=== PATIENT | male | born 1960 | race Two or more races ===

== ENCOUNTER 2016-06-28 11:27 | Emergency (ER) | payer MEDICAID, OTHER ==
[~2016-06-28] VITALS: Ht 172.7 cm; Wt 117.9 kg
[2016-06-28 11:35] VITALS: BP 121/66
[2016-06-28] MEDS ORDERED: Morphine Sulfate 2mg/ml Inj IVP ONE (11:45)
[2016-06-28 12:29] LABS: ALANINE AMINOTRANSFERASE 35 U/L (3-41); ALBUMIN/GLOBULIN RATIO 0.6 (1.0-2.7); ANION GAP 17 (5-15); ASPARTATE AMINO TRANSFERASE 26 U/L (5-40); CALCIUM 9.4 mg/dL (8.6-10.2); CARBON DIOXIDE 23 mEQ/L (20-30); CHLORIDE 90 mEQ/L (98-107); CREATININE 0.8 mg/dL (0.7-1.2); GLOMERULAR FILTRATION RATE > 60 mL/min (>60); HEMOLYSIS 47; POTASSIUM 4.4 mEQ/L (3.4-4.9); SODIUM 130 mEQ/L (135-145); TOTAL PROTEIN 8.3 g/dL (6.6-8.7); TROPONIN I < 0.30 ng/mL (<=0.30)
[2016-06-28 12:30] VITALS: BP 123/84
[2016-06-28 12:41] LABS: BASOPHILS % (AUTO) 0.9 % (0.0-2.0); EOSINOPHILS % (AUTO) 1.9 % (0.0-3.0); MEAN CORPUSCULAR HEMOGLOBIN 30.6 PG (27.0-31.0); MEAN CORPUSCULAR HGB CONC 33.3 G/DL (32.0-36.0); MEAN CORPUSCULAR VOLUME 92 FL (80-99); MEAN PLATELET VOLUME 6.5 FL (6.5-10.1); MONOCYTES % (AUTO) 5.9 % (1.0-10.0); NEUTROPHILS % (AUTO) 68.3 % (45.0-75.0); PLATELET COUNT 716 K/UL (150-450); RED BLOOD COUNT 4.13 M/UL (4.70-6.10); RED CELL DISTRIBUTION WIDTH 11.4 % (11.6-14.8); THYROID STIMULATING HORMONE 0.651 uIU/mL (0.300-4.500); WHITE BLOOD COUNT 13.5 K/UL (4.8-10.8)
[2016-06-28 12:43] LABS: APPEARANCE,URINE CLEAR; KETONES,URINE NEGATIVE (NEGATIVE); LEUKOCYTE ESTERASE ,URINE NEGATIVE (NEGATIVE); NITRITE,URINE NEGATIVE (NEGATIVE); PH,URINE 7 (4.5-8.0); PROTEIN,URINE NEGATIVE (NEGATIVE); UROBILINOGEN,URINE NORMAL MG/DL (0.0-1.0)
[2016-06-28 12:55] LABS: INR 1.1 (0.9-1.1); PROTHROMBIN TIME 11.4 SEC (9.30-11.50)
[2016-06-28] MEDS ORDERED: Lidocaine 1% 10mg/ml/EPI 0.01mg/ml 50ml INJ ONE (13:30)
[2016-06-28 14:15] VITALS: BP 128/76
--- NOTE | 2016-06-28 14:33 | Emergency Room Report ---
History of Present Illness General Chief Complaint: Pain Source: Patient Present Illness HPI Patient presents complaining about left knee pain. Has been going on for almost a week. [place] Also there was a spider bite below the knee which makes him think that he might have an infection. Chills 2 days ago. Pain is 8/10, constant and worse with bending and standing. He has not taken any medicine. There is swelling below the knee. No calf tenderness. No chest pain, SOB, hemoptysis, dysuria. Allergies: Coded Allergies: No Known Allergies (Unverified , 06/28/16) Patient History Past Medical History: see triage record Social History: Reports: drug use - thc, smoking Social History Narrative unemployed - was doing insurance Reviewed Nursing Documentation: PMH: Agreed, PSxH: Agreed Nursing Documentation-PMH Past Medical History: No Stated History Review of Systems All Other Systems: negative except mentioned in HPI Physical Exam Vital Signs Date Time Temp Pulse Resp B/P Pulse Ox O2 Delivery O2 Flow Rate FiO2 06/28/16 11:32 97.7 124 22 169/91 99 Room Air Sp02 EP Interpretation: reviewed, normal General Appearance: well appearing, no apparent distress, GCS 15 Head: normocephalic Eyes: bilateral eye PERRL, bilateral eye normal inspection ENT: moist mucus membranes Neck: supple Respiratory: lungs clear, normal breath sounds Cardiovascular #1: regular rate, rhythm, edema - 1+ below knee Cardiovascular #2: 2+ radial (R), 2+ dorsalis pedis (R), 2+ dorsalis pedis (L) Gastrointestinal: normal inspection, normal bowel sounds, non tender, no mass, non-distended Musculoskeletal: no calf tenderness, decreased range of motion - R knee, ligs intact, inflammation, swelling, other - L knee is warm, ligaments stable, some effusion Neurologic: alert, oriented x3, grossly normal Skin: normal inspection, warm/dry, other - no erythema of knee Procedures Additional Procedure Procedure Narrative Arthrocentesis. Verbal consent. Prep betadiene draped. 1% lido epi. 0.5 ml bloody fluid removed. Medial approach with 18 ga needle. Culture sent. Tolerated well. Medical Decision Making Diagnostic Impression: Primary Impression: Septic joint of left knee joint Qualified Codes: M00.9 - Pyogenic arthritis, unspecified ER Course Patient presents with left knee pain. Initially he was reporting trauma. In after a noted that he was warm he states that he had a bug bite there and is concerned about possible infection. Differential includes gout, osteoarthritis , meniscal tear, septic joint amongst others. In addition to that because of the swelling there is a concern about possible DVT. Clinically exam is against DVT. D-dimer is ordered. Patient with warm knee and + D dimer. Need to exclude DVT. Uric acid excludes gout. US negative. Tap knee - only culture obtained. Antibiotics begun. Pain improved. Discussed with Dr. Montesinos. Transfer [facility]. Laboratory Tests Test 06/28/16 11:30 06/28/16 11:39 06/28/16 11:51 Uric Acid 4.8 mg/dL (3.0-7.5) Prothrombin Time 11.4 SEC (9.30-11.50) Prothrombin Time INR 1.1 (0.9-1.1) PTT 32 SEC (23-33) White Blood Count 13.5 K/UL (4.8-10.8) H Red Blood Count 4.13 M/UL (4.70-6.10) L Hemoglobin 12.7 G/DL (14.2-18.0) L Hematocrit 38.0 % (42.0-52.0) L Mean Corpuscular Volume 92 FL (80-99) Mean Corpuscular Hemoglobin 30.6 PG (27.0-31.0) Mean Corpuscular Hemoglobin Concent 33.3 G/DL (32.0-36.0) Red Cell Distribution Width 11.4 % (11.6-14.8) L Platelet Count 716 K/UL (150-450) H Mean Platelet Volume 6.5 FL (6.5-10.1) Neutrophils (%) (Auto) 68.3 % (45.0-75.0) Lymphocytes (%) (Auto) 23.0 % (20.0-45.0) Monocytes (%) (Auto) 5.9 % (1.0-10.0) Eosinophils (%) (Auto) 1.9 % (0.0-3.0) Basophils (%) (Auto) 0.9 % (0.0-2.0) D-Dimer 3392 ng/mL (<500) H Urine Color Pale yellow Urine Appearance Clear Urine pH 7 (4.5-8.0) Urine Specific [place] 1.010 (1.005-1.035) Urine Protein Negative (NEGATIVE) Urine Glucose (UA) Negative (NEGATIVE) Urine Ketones Negative (NEGATIVE) Urine Occult Blood Negative (NEGATIVE) Urine Nitrite Negative (NEGATIVE) Urine Bilirubin Negative (NEGATIVE) Urine Urobilinogen Normal MG/DL (0.0-1.0) Urine Leukocyte Esterase Negative (NEGATIVE) Sodium Level 130 mEQ/L (135-145) L Potassium Level 4.4 mEQ/L (3.4-4.9) Chloride Level 90 mEQ/L (98-107) L Carbon Dioxide Level 23 mEQ/L (20-30) Anion Gap 17 (5-15) H Blood Urea Nitrogen 11 mg/dL (7-23) Creatinine 0.8 mg/dL (0.7-1.2) Estimate Glomerular Filtration Rate > 60 mL/min (>60) Glucose Level 128 mg/dL (74-106) H Calcium Level 9.4 mg/dL (8.6-10.2) Total Bilirubin 0.4 mg/dL (0.0-1.2) Aspartate Amino Transferase (AST) 26 U/L (5-40) Alanine Aminotransferase (ALT) 35 U/L (3-41) Alkaline Phosphatase 80 U/L (40-129) Total Creatine Kinase 193 U/L (38-174) H Troponin I < 0.30 ng/mL (<=0.30) Pro-B-Type Natriuretic Peptide 32 pg/mL (0-125) Total Protein 8.3 g/dL (6.6-8.7) Albumin 3.3 g/dL (3.5-5.2) L Globulin 5.0 g/dL Albumin/Globulin Ratio 0.6 (1.0-2.7) L Thyroid Stimulating Hormone (TSH) 0.651 uIU/mL (0.300-4.500) Urine Opiates Screen Negative (NEGATIVE) Urine Barbiturates Screen Negative (NEGATIVE) Phencyclidine (PCP) Screen Negative (NEGATIVE) Urine Amphetamines Screen Negative (NEGATIVE) Urine Benzodiazepines Screen Negative (NEGATIVE) Urine Cocaine Screen Negative (NEGATIVE) Urine Marijuana (THC) Screen Positive (NEGATIVE) H EKG Diagnostic Results Rate: tachycardiac ST Segments: no acute changes Rhythm Strip Diag. Results EP Interpretation: yes Rhythm: no PVC's, no ectopy, other - ST Chest X-Ray Diagnostic Results EP Interpretation: Yes Findings: no consolidation, no effusion, no pneumothorax, no acute cardiopulmonary disease Number of Views: 1 Other X-Ray Diagnostic Results Other X-Ray Diagnostic Results : X-Ray Ordered: L knee EP Interpretation: Yes Findings: no fractures, no dislocation, other - effusion Number of Views: 3 CT/MRI/US Diagnostic Results CT/MRI/US Diagnostic Results : Imaging Test Ordered: venous duplex Impression no DVT Last Vital Signs Date Time Temp Pulse Resp B/P Pulse Ox O2 Delivery O2 Flow Rate FiO2 06/28/16 17:46 94 17 152/97 98 Room Air 06/28/16 16:11 98.2 Status: improved Disposition: [facility]FER [facility] Condition: Serious - stable for transfer Mitchell Fields M.D. June 28, 2016 14:33
[2016-06-28] MEDS ORDERED: Vancomycin 1.5 GM in D5W 325 ML IVPB STA (14:34)
[2016-06-28] MEDS ORDERED: cefTRIAXone 1 GM in NS 55 ML IVPB ONE (14:45)
[2016-06-28] MEDS ORDERED: Vancomycin 1gm inj IVPB ONE (15:09)
[2016-06-28 16:11] VITALS: BP 129/71
[2016-06-28 17:46] VITALS: BP 152/97
--- NOTE | 2016-06-29 10:37 | Diagnostic Imaging Report ---
Indication: Left knee trauma Technique: Left knee 3 views Comparison: None Findings: There is no acute fracture or dislocation. A left knee joint effusion is seen. A suprapatellar enthesophyte is present. Soft tissue swelling of the knee is noted. Impression: No acute fracture or dislocation. Soft tissue swelling and joint effusion. Clinical correlation recommended. Suprapatellar enthesophyte.
--- NOTE | 2016-06-29 10:38 | Diagnostic Imaging Report ---
Indication: Chest trauma Technique: XRAY CHEST 1 V Comparison: None Findings: Cardiomediastinal silhouette is within normal limits. There is no consolidation or pleural effusion. Degenerative changes of the spine are noted. Impression: No acute cardiopulmonary disease.
--- NOTE | 2016-06-30 21:21 | Diagnostic Imaging Report ---
APPROVED REPORT CPT Code: 64154 Present Symptoms Lower Extremity Pain: Left LEFT LEG: Venous imaging reveals a patent deep venous system. There is no evidence of thrombus within the femoral, popliteal or tibial segments. The greater saphenous vein is also within normal limits. Doppler indicates normal spontaneous flow within these segments.
--- NOTE | 2016-07-03 17:50 | Cardiology Report ---
APPROVED REPORT EKG Measurement Heart [id number] OK [id number] Sinus tachycardia Otherwise normal ECG
== END 2016-06-28 17:53 | disposition short-term general hospital (02) ==
LOC: EMR 11:51 → EDBEDREQ 13:12 → EMR 17:53
DX: L03.116 Cellulitis of left lower limb (principal); M25.462 Effusion, left knee; F17.200 Nicotine dependence, unspecified, uncomplicated; F12.90 Cannabis use, unspecified, uncomplicated
CPT/HCPCS: 20610; 36415; 71010; 73562; 80053; 80300; 81003; 82550; 83880; 84443; 84484; 84550; 85025; 85379; 85610; 85730; 87040; 93005; 93971; 96360; 96361; 96374; 96375; 99285; J0696; J2270; J2405; J3370; Z7502